=== PATIENT | female | born 2000 | race Caucasian/White ===

== ENCOUNTER 2024-04-08 20:10 | Emergency (ER) | payer OTHER, SELFPAY ==
[2024-04-08 20:29] VITALS: BP 122/85; PULSE 96; RESP 16; TEMP 36.7; O2SAT 97
[2024-04-08 21:38] LABS: Bilirubin Urine Negative (Negative); Blood Urine 2+ (Negative); Glucose Urine UA Negative (Normal); Ketones Urine Negative (Negative); Leukocyte Esterase Urine Negative (Negative); Nitrate Urine Negative (Negative); Protein Urine Negative (Negative); Specific Gravity, Urine 1.004 (1.005-1.030); Urine Appearance Clear (CLEAR); Urine Color Yellow (Yellow); pH Urine 6.5 (5-7)
[2024-04-08 21:40] LABS: Basophils % 0.4 %; Eosinophils % 0.2 %; Hematocrit 39.6 % (36-47); Lymphocytes # 1.1 10^3/uL (0.8-4.8); Lymphocytes % 20.1 %; Mean Corpuscular HGB Conc 33.3 g/dL (30-55); Mean Corpuscular Hemoglobin 26.8 pg (27-33); Mean Corpuscular Volume 80.3 fl (85-98); Mean Platelet Volume 11.4 fL (7.4-10.4); Monocytes # 0.4 10^3/uL (0.2-0.9); Monocytes % 6.9 %; Neutrophils # 4.11 10^3/uL (1.8-7.7); Neutrophils % 72.2 %; Nucleated Red Blood Cells % 0 %; Platelet Count 230 10^3/cmm (157-399); Red Blood Count 4.93 10^6/uL (3.85-5.65); Red Cell Distribution Width 13.7 % (12.1-15.1); White Blood Count 5.68 10^3/uL (3.29-11.43)
[2024-04-08 21:43] LABS: Add Urine Microscopic? YES; Bacteria Urine None Seen /hpf; Hyaline Casts Urine 0-4 /lpf; RBC Urine 0-2 /hpf (0-2); Squamous Epithelial Cell Urine 0-5 /hpf (0-5); WBC Urine 0-5 /hpf (0-5)
--- NOTE | 2024-04-08 21:45 | USR_ITS ---
PROCEDURE INFORMATION: Exam: US , Limited Exam date and time: 04/08/2024 10:06 PM Age: 23 years old Clinical indication: Lmp or gestational age (in weeks): 11w 2d by lmp; Antepartum complications; ; G1-p0-a0-l0 presenting with vaginal bleeding; Additional info: 11 weeks gestation, vaginal bleeding LABS AND CLINICAL REPORTS: Choriogonadotropin in serum (Serum HCG): 3275 mIU/mL Gestational age (Established): 11 w 2 d Estimated due date (Established): 10/26/2024 TECHNIQUE: Imaging protocol: Real-time ultrasound of the maternal uterus with image documentation. Exam focused on the clinical indication. COMPARISON: US gall bladder [id number] 07/23/2023 12:05 PM FINDINGS: Multifetal identity: Fetus 2 - A Gestation: Intrauterine gestation with 2 fetus is. heart rate: Fetus 1 - 0 bpm. Fetus 2 - 0 bpm. There is no heart rate obtained BIOMETRY: Gestational age (AUA): Fetus 1 - 7 w 5 d. Fetus 2 - 7 w 4 d Estimated due date (AUA): Fetus 1 - 11/21/2024. Fetus 2 - 11/21/2024 [place] rump length (CRL): 1.35 cm for fetus A and 1.32 cm for fetus B MATERNAL: Uterus: Uterus measures 8.32 cm x 6.45 cm x 6.55 cm. Right ovary/adnexa: Right ovary measures 2.9 cm x 3.2 cm x 1.9 cm. Right ovarian volume is 9.2 mL. There is flow noted. Left ovary/adnexa: Left ovary measures 3.1 cm x 1.2 cm x 2.2 cm. Left ovarian volume is 4.3 mL. There is flow noted. Intraperitoneal space: There is no free fluid noted. US/US OB limited [id number] IMPRESSION: Twin with a gestational age of 7 weeks and 4-5 days with no heart rate which is diagnostic of a failed .
--- NOTE | 2024-04-08 21:45 | W.ED.FEMALGU ---
HPI - Female Genitourinary General: Chief complaint: Vaginal Bleeding Stated complaint: 11 wk preg bleeding Time Seen by Provider: 04/08/24 21:18 History of Present Illness: Patient presents to the ER today with complaints of some bright red blood on the toilet paper when she wiped after she urinated. Patient's proxy 11 weeks . Patient denies any abdominal pain other than mild right upper quadrant pain no abdominal cramping. She says this only happened 1 time today. Has not happened in the past. Patient denies all other complaints. Related Data Home Medications Medication Instructions Recorded Confirmed No Known Home Medications 04/27/21 07/17/23 Allergies Allergy/AdvReac Type Severity Reaction Status Date / Time epinephrine Allergy Unknown Unknown Verified 04/08/24 20:33 lidocaine Allergy Unknown Unknown Verified 04/08/24 20:33 Review of Systems General: Reports: 10 or more systems reviewed and unremarkable except in HPI and below PFSH ED PFSH: Social History Smoking and tobacco/nicotine status: never used tobacco/nicotine Second hand smoke exposure: No Alcohol intake: never Substance/Drug Use: never Physical Exam Const: COMMON NORMALS: no acute distress, average body habitus, patient oriented x3, no limitations, healthy appearing, alert and well nourished HENMT: COMMON NORMALS: normocephalic, atraumatic, hearing grossly normal bilaterally, external ears normal, Normal external nose present and moist oral mucous membranes HEAD & SCALP: normocephalic and atraumatic NOSE: Normal external nose present EXTERNAL EAR: Yes external ears normal Neck/C-Spine: COMMON NORMALS: no JVD Chest: COMMONS NORMALS: normal inspection of the chest and normal palpation of entire chest wall Resp: COMMON NORMALS: normal respiratory effort, No retractions, No use of accessory muscles and clear to auscultation bilaterally AUSCULTATION: clear to auscultation bilaterally Cardio: COMMON NORMALS: no JVD, regular rate, regular rhythm, S1 normal heart sound present, S2 normal heart sound present, No gallops present (Cardio), No clicks present (Cardio), No murmurs present (Cardio) and No rub (Cardio) RATE: regular rate RHYTHM: regular rhythm HEART SOUNDS: S1 normal heart sound present and S2 normal heart sound present GI: COMMON NORMALS: Normal to inspection, nondistended, normoactive bowel sounds present, Soft to palpation, non-tender, No hepatosplenomegaly present and no masses PALPATION: Yes Soft to palpation and Yes No hepatosplenomegaly present Neuro: COMMON NORMALS: patient oriented x3 SENSORIUM/ORIENTATION: Yes alert Course Vital Signs: Vital signs: Vital Signs Temperature 98.1 F 04/08/24 20:29 Pulse Rate 92 04/08/24 22:30 Respiratory Rate 16 04/08/24 20:29 Blood Pressure 123/75 04/08/24 21:57 Pulse Oximetry 97 04/08/24 22:30 Oxygen Delivery Me thod Room Air 04/08/24 22:30 MDM - Female Medical Decision Making Lab work reviewed, ultrasound reviewed, failed of twins, at approximately 7 weeks 4 to 5 days. These results was discussed with the patient and her mother. Patient sees Dr. Cosby was instructed to follow-up with him NAVA for probable referral to OB for definitive treatment Medical Records I reviewed the patient's medical records. Lab Data I reviewed the patient's lab results. 04/08/24 21:38 04/08/24 21:38 Radiology Impressions Obstetrics Ultrasound 04/08/24 21:45 IMPRESSION: Twin with a gestational age of 7 weeks and 4-5 days with no heart rate which is diagnostic of a failed . ADDENDUM: 04/08/24 [id number] THIS REPORT CONTAINS FINDINGS THAT MAY BE CRITICAL TO PATIENT CARE. The findings were verbally communicated via telephone conference with Dr. Ramos at 11:36 PM METAL MINE INSPECTOR on 04/08/2024. The findings were acknowledged and understood. Laboratory Results WBC 5.68 10^3/uL (3.29-11.43) 04/08/24 21:38 RBC 4.93 10^6/uL (3.85-5.65) 04/08/24 21:38 Hgb 13.20 g/dL (11.27-16.99) 04/08/24 21:38 Hct 39.6 % (36-47) 04/08/24 21:38 MCV 80.3 fl (85-98) L 04/08/24 21:38 MCH 26.8 pg (27-33) L 04/08/24: MCHC 33.3 g/dL (30-55) 04/08/24 21:38 RDW 13.7 % (12.1-15.1) 04/08/24 21:38 Plt Count 230 10^3/cmm (157-399) 04/08/24 21:38 MPV 11.4 fL (7.4-10.4) H 04/08/24 21:38 Neut % (Auto) 72.2 % 04/08/24 21:38 Lymph % (Auto) 20.1 % 04/08/24 21:38 [place] % (Auto) 6.9 % 04/08/24 21:38 Eos % (Auto) 0.2 % 04/08/24 21:38 Baso % (Auto) 0.4 % 04/08/24 21:38 Neut # (Auto) 4.11 10^3/uL (1.8-7.7) 04/08/24 21:38 Lymph # (Auto) 1.1 10^3/uL (0.8-4.8) 04/08/24 21:38 [place] # (Auto) 0.4 10^3/uL (0.2-0.9) 04/08/24 21:38 Eos # (Auto) 0.0 10^3/uL (0.0-0.8) 04/08/24 21:38 Baso # (Auto) 0.0 10^3/uL (0.0-0.1) 04/08/24 21:38 Nucleated RBC % (auto) 0 % 04/08/24 21:38 Nucleated RBCs # 0.0 /100WBC 04/08/24 21:38 Sodium 137 mmol/L (136-145) 04/08/24 21:38 Potassium 3.4 mmol/L (3.5-5.1) L 04/08/24 21:38 Chloride 101 mmol/L (98-107) 04/08/24 21:38 Carbon Dioxide 23 mmol/L (22-29) 04/08/24 21:38 Anion Gap 16.4 (5-19) 04/08/24 21:38 BUN 5 mg/dL (6-20) L 04/08/24 21:38 Creatinine 0.5 mg/dL (0.5-0.9) 04/08/24 21:38 GFR Calculation 151.6 mL/min (90-130) H 04/08/24 21:38 Glucose 86 mg/dL (65-115) 04/08/24 21:38 Calculated Osmolality 281 mOsm/kg (285-295) L 04/08/24 21:38 Calcium 9.3 mg/dL (8.5-10.5) 04/08/24 21:38 Total Bilirubin 0.2 mg/dL (0.15-1.2) 04/08/24 21: AST 16 U/L (0-32) 04/08/24 21: ALT 13 U/L (0-33) 04/08/24 21:38 Alkaline Phosphatase 97 U/L (35-105) 04/08/24 21: Total Protein 7.7 g/dL (6.6-8.7) 04/08/24 21: Albumin 4.5 g/dL (3.5-5.2) 04/08/24 21: Globulin 3.2 g/dL (1.3-4.6) 04/08/24 21:38 Ser , Semi-Qnt 3275.00 mIU/mL 04/08/24 21:38 Urine Color Yellow (Yellow) 04/08/24 21: Urine Appearance Clear (CLEAR) 04/08/24 21: Urine pH 6.5 (5-7) 04/08/24 21: Ur Specific [place] 1.004 (1.005-1.030) L 04/08/24 21: Urine Protein Negative (Negative) 04/08/24 21: Urine Glucose (UA) Negative (Normal) 04/08/24 21: Urine Ketones Negative (Negative) 04/08/24 21: Urine Blood 2+ (Negative) A 04/08/24 21: Urine Nitrate Negative (Negative) 04/08/24 21: Urine Bilirubin Negative (Negative) 04/08/24 21: Urine Urobilinogen 1.0 mg/dL (Negative) 04/08/24 21: Ur Leukocyte Esterase Negative (Negative) 04/08/24 21: Urine RBC 0-2 /hpf (0-2) 04/08/24 21:28 Urine WBC 0-5 /hpf (0-5) 04/08/24 21:28 Ur Squamous Epith Cells 0-5 /hpf (0-5) 04/08/24 21:28 Amorphous Sediment Not Reportable 04/08/24 21:28 Urine Bacteria None seen /hpf (NONE) 04/08/24 21:28 Hyaline Casts 0-4 /lpf H 04/08/24 21:28 Blood Type O Negative 04/08/24 21:38 Rho(D) Type Rh negative 04/08/24 21:38 Antibody Screen Negative 04/08/24 21:38 All radiology interpretation(s) finalized by discharge Discharge Plan Discharge Patient Disposition: Home Clinical Impression: demise, less than 22 weeks Condition: Stable Prescriptions: No Action No Known Home Medications Discharge Orders: Discharge ED (Routine); Ordered 04/08/24 Ordered By: Marcel Ramos Referrals: Nas Cosby MD [Primary Care Provider] - 1 week Activity Restrictions/Additional Instructions: Today presented to the ER with vaginal bleeding during . You are given a RhoGAM. An ultrasound showed a failed of twins. Please follow-up with your PCP and OPERATOR/ASSISTANT FOREMAN for definitive treatment. Coding Level of Care Code ED Ticketing Clerk for Yadira Hernández
[2024-04-08 21:57] VITALS: BP 123/75; PULSE 90; O2SAT 96
[2024-04-08 22:00] VITALS: PULSE 91; O2SAT 96
[2024-04-08 22:09] LABS: Alanine Aminotransferase 13 U/L (0-33); Albumin Level 4.5 g/dL (3.5-5.2); Alkaline Phosphatase 97 U/L (35-105); Anion Gap 16.4 (5-19); Aspartate Amino Transferase 16 U/L (0-32); Blood Urea Nitrogen 5 mg/dL (6-20); Calcium 9.3 mg/dL (8.5-10.5); Carbon Dioxide 23 mmol/L (22-29); Chloride 101 mmol/L (98-107); Globulin 3.2 g/dL (1.3-4.6); Glomerular Filtration Rate 151.6 mL/min (90-130); Glucose 86 mg/dL (65-115); Osmolality Calculated 281 mOsm/kg (285-295); Potassium 3.4 mmol/L (3.5-5.1); Sodium 137 mmol/L (136-145); Total Bilirubin 0.2 mg/dL (0.15-1.2); Total Protein 7.7 g/dL (6.6-8.7)
[2024-04-08 22:30] VITALS: PULSE 92; O2SAT 97
[2024-04-08] MEDS: rho(d) immune globulin 1,500 unit Syringe 1500 UNIT IM (23:05)
== END 2024-04-09 00:13 | disposition home or self-care (01) ==
PROVIDERS: Emergency Provider Emergency Medicine; PCP Family Medicine
DX: O02.1 Missed abortion (principal)
CPT/HCPCS: 36415; 76815; 80053; 81001; 84702; 85025; 86850; 86900; 96372; 99284; J2790